=== PATIENT | female | born 1965 | race Caucasian/White ===

== ENCOUNTER 2017-02-19 06:22 | Emergency (ER) | payer BC ==
[~2017-02-19] VITALS: Ht 175.3 cm; Wt 94.5 kg
[2017-02-19 06:59] LABS: BASOPHIL (%) 0.2 % (0-1); EOSINOPHIL (%) 0.6 % (0-5); EOSINOPHIL COUNT 0.1 K/uL (0-0.3); HEMOGLOBIN 14.3 G/DL (11.9-15.5); IMMATURE GRANULOCYTE (%) 0.3 % (0.0-0.7); LYMPHOCYTE (%) 6.9 % (15-42); LYMPHOCYTE COUNT 0.7 K/uL (1.0-2.8); MCH 32.1 PG (29.0-34.0); MCV 94.2 FL (83-99); MONOCYTE (%) 5.3 % (3-12); MONOCYTE COUNT 0.5 K/uL (0-0.8); NEUTROPHIL (%) 86.7 % (45-76); NEUTROPHIL COUNT 8.8 K/uL (1.8-6.4); PLATELET COUNT 310 K/uL (156-360); RBC DIS.WIDTH-CV 12.2 % (11.8-14.6); RBC DIS.WIDTH-SD 41.8 % (39-53); RED BLOOD COUNT 4.46 M/uL (3.80-5.20); WHITE BLOOD COUNT 10.2 K/uL (4.1-10.2)
[2017-02-19 07:16] LABS: CHLORIDE 106 mEq/L (99-109); POTASSIUM 3.9 mEq/L (3.7-5.4); SODIUM 138 mEq/L (136-147)
[2017-02-19 07:17] LABS: GLUCOSE 113 mg/dL (70-99)
[2017-02-19 07:21] LABS: CREATININE 0.8 mg/dL (0.6-1.3); GFR ESTIMATE (CALCULATED) > 59 mL/min/
[2017-02-19 07:22] LABS: UREA NITROGEN (BUN) 16 mg/dL (9-23)
[2017-02-19 08:58] LABS: APPEARANCE CLOUDY ((CLEAR)); BILIRUBIN NEGATIVE; BLOOD NEGATIVE; COLOR YELLOW ((YELLOW)); GLUCOSE (STRIP) NEGATIVE; KETONES NEGATIVE; LEUKOCYTES NEGATIVE; NITRITE NEGATIVE; PROTEIN (STRIP) 30; SPECIFIC GRAVITY 1.029 (1.000-1.030); UROBILINOGEN 0.2 MG/DL (0.2-1.0)
[2017-02-19 09:04] LABS: BACTERIA RARE /HPF; EPITHELIAL CELLS 4+ /HPF; MUCUS TRACE /LPF; UCUL ADDED? NO; WHITE BLOOD CELLS 0-5 /HPF (0-5)
[2017-02-19] MEDS ORDERED: BENTYL20 MG PO (09:19)
[2017-02-19] MEDS ORDERED: ZOFRAN4 MG PO (09:19)
[2017-02-19 09:43] VITALS: BP 136/80
== END 2017-02-19 09:43 | disposition home or self-care (01) ==
LOC: EDBD 06:22 → EME 06:22
PROVIDERS: Emergency Medicine
DX: K52.9 Noninfective gastroenteritis and colitis, unspecified (principal); Z91.041 Radiographic dye allergy status; Z88.8 Allergy status to other drugs, medicaments and biological substances
CPT/HCPCS: 80048; 81003; 85025; 87493; 99281; 99284; J2405; J7030